=== PATIENT | female | born 1950 | race Caucasian/White ===

== ENCOUNTER 2022-02-26 04:56 | Emergency (ER) | payer MEDICARE, SELFPAY ==
[2022-02-26 05:15] VITALS: BP 179/82; RESP 20; TEMP 36.9; O2SAT 97; BMI 58.7
--- NOTE | 2022-02-26 05:47 | ED_ITS ---
HPI - Abdominal Pain General Time Seen by Provider: 05:30 Date Seen: 02/26/22 Chief Complaint: Abdominal Pain Stated Complaint: Extreme abdominal pain and cramping Time Seen by Provider: 02/26/22 05:28 Source: patient, family and RN notes reviewed Mode of arrival: ambulatory Limitations: no limitations History of Present Illness HPI narrative: Patient is a very pleasant 71-year-old female with a history of bladder cancer, uterine cancer status post radiation and chemotherapy, as well as 4 coronary artery stents who comes to the emergency room for abdominal pain. Patient notes that she has been seeing her GI doctor in regards to recurrent abdominal pain. Today the pain lasted for approximately 2 hours, patient took a stool softener, and on the way here her abdomen seems to be much improved. Patient is noted to have had approximately yearly episodes of abdominal pain and abdominal distension usually lasting for about 2 days. She has had a GI follow-through as well as colonoscopy and everything looked normal. Her GI doctor told her to come in to be evaluated if this would happen again. Today, however things are much improved after only 2 hours. This year alone this will be the 5th time she has had significant abdominal pain. She denies fever chills cough congestion diarrhea. She does note that on the way here she passed some gas and her abd omen is not as distended and noted that she was much improved. Related Data Home Medications Medication Instructions Recorded Confirmed losartan 02/26/22 metoprolol tartrate 02/26/22 Allergies Allergy/AdvReac Type Severity Reaction Status Date / Time No Known Drug Allergies Allergy Verified 02/26/22 05:25 Review of Systems Const Denies: fever or chills Eyes Denies: change in vision ENMT Denies: throat pain or neck pain Cardio Denies: chest pain, palpitations or shortness of breath with exertion Resp Denies: shortness of breath GI Reports: abdominal pain and nausea; Denies: diarrhea Denies: painful urination Musculo Denies: back pain or neck pain PFSH [facility] Medical History Bladder cancer Uterine cancer Social History Smoking Status: Never smoker Do you use any of these nicotine containing products: None How often do you have a drink containing alcohol: never AUDIT-C Alcohol total score: 0 Exam Const: Vital Signs, click to edit/add: Vital Signs - 24 hr 02/26/22 05:15 Temperature 98.5 F Respiratory Rate 20 Blood Pressure [Ri ght Upper Arm] 179/82 H Pulse Oximetry 97 Oxygen Delivery Me thod Room Air Documenting provider has reviewed patient's vital signs: yes Common normals: no apparent distress, average body habitus, oriented x3, no limitations, healthy appearing, alert and well nourished General appearance: cooperative, comfortable and well kempt HENMT: Common normals: normocephalic Head and scalp: normocephalic Eye: Common normals: PERRL General eye: normal appearance of both eyes Pupil: PERRL Neck & C-Spine: Common normals: full ROM, no lymphadenopathy and supple Resp: Common normals: normal respiratory effort and clear to auscultation bilaterally Effort & inspection: able to speak in complete sentences Ausc ultation: clear to auscultation bilaterally Cardio: Common normals: regular rate and regular rhythm Rate: regular rate Rhythm: regular rhythm GI: Common normals: Normal to inspection, nondistended, normoactive bowel sounds present, soft to palpation, non-tender and no masses Palpation: soft; non-tender, no guarding and not rigid Other: No evidence of hernia : Common normals: no CVA tenderness Bladder/kidney exam: no CVA tenderness Back & Pelvis: Common normals: no CVA tenderness Extremity: Common normals: normal to inspection Neuro: Common normals: oriented x3 Sensorium/orientation: alert Psych: Common normals: mental status grossly normal Appearance: well kempt Course Course Hospital Course: Patient at this time has had resolution of her symptoms. She has no evidence of hernias, lack of bowel sounds. She is feeling much better after taking stool softener and walking. At this time would not suggest radiology or blood studies as symptoms are much improved. She will stay with us for the 30-45 minutes. If she has return of symptoms will proceed further otherwise she will be discharged home. Vital Signs Vital signs: Initial Vital Signs Temperature 98.5 F 02/26/22 05:15 Temperature Source Temporal Artery Scan 02/26/22 05:15 Respiratory Rate 20 02/26/22 05:15 Blood Pressure 179/82 H 02/26/22 05:15 Blood Pressure Mean 114 02/26/22 05:15 Pulse Oximetry 97 02/26/22 05:15 Oxygen Delivery Method 02/26/22 05:15 Vital Signs Temperature 98.5 F 02/26/22 05:15 Respiratory Rate 20 02/26/22 05:15 Blood Pressure 179/82 H 02/26/22 05:15 Pulse Oximetry 97 02/26/22 05:15 Oxygen Delivery Method 02/26/22 05:15 Temperature 98.5 F 02/26/22 05:15 Respiratory Rate 20 02/26/22 05:15 Blood Pressure 179/82 H 02/26/22 05:15 Pulse Oximetry 97 02/26/22 05:15 Oxygen Delivery Method 02/26/22 05:15 MDM - Abdominal Pain MDM Narrative Medical decision making narrative: 1. Abdominal pain-resolved. Patient has had abdominal pain occurring yearly thought to be secondary to adhesions as she has a history of hysterectomy radiation for uterine cancer. This year however she has had 4 episodes 1 in July, September, October, December and now this is the 5th episode. However, usually her symptoms last for 48 hours and this only lasted for 2 hours. Patient and her are comfortable with not proceeding with further evaluation as she continues to be within normal limits with no discomfort. I would have her return for increasing pain vomiting abdominal distension as needed in the future. 2. Disposition-patient is discharged home in the care of her . Return for worsening symptoms. Discharge Plan Discharge Clinical Impression: Resolved abdominal pain Patient Disposition: Home, Self-Care Condition: Improved Additional Instructions: Return as needed or seek medical attention for recurrence of symptoms. Prescriptions: No Action metoprolol tartrate losartan Follow Up/Referrals: Provider,Not a Local [Primary Care Provider] - Stand Alone Forms: [employer] Info Instructions
--- NOTE | 2022-02-26 05:49 | ED.NURSE ---
patient states abd pain has resolved, but slight soreness.
== END 2022-02-26 06:48 | disposition home or self-care (01) ==
PROVIDERS: Emergency Provider Family Medicine
DX: R10.9 Unspecified abdominal pain (principal)
CPT/HCPCS: 99283